=== PATIENT | female | born 1960 | race Caucasian/White ===

== ENCOUNTER 2017-06-13 23:22 | Observation (INO) | payer BC ==
[2017-06-13 23:30] VITALS: BMI 29.2
[2017-06-14] MEDS ORDERED: ASPIRIN 81 MG CHEWABLE TABLETS PO ONE (01:27)
--- NOTE | 2017-06-14 01:28 | PDOC ---
History of Present Illness - General Chief Complaint: Pain Stated Complaint: STOMACH PAIN Time Seen by Provider: 06/14/17 01:16 History Source: Patient - History of Present Illness Initial Comments: 06/14/17 02:22 57 year old female with history of hypercholestremia c/o epigastric pain, nausea vomiting and chest pain x 1 day. patient reports feeling heaviness, diaphoresis, nausea. Patient s/p bladder surgery 04/23/17, dysuria. denies fever, cough, URI, headache Past History - Past Medical History Allergies/Adverse Reactions: Allergies Allergy/AdvReac Type Severity Reaction Status Date / Time No Known Allergies Allergy Verified 06/13/17 23:30 Home Medications: Ambulatory Orders Simvastatin [Zocor -] 20 mg PO DAILY 06/14/17 COPD: No Hypercholesterolemia: Yes - Suicide/Smoking/Psychosocial Hx Smoking History: Current every day smoker Have you smoked in the past 12 months: Yes Number of Cigarettes Smoked Daily: 2 Information on smoking cessation initiated: No Hx Alcohol Use: No Drug/Substance Use Hx: No Substance Use Type: None *Physical Exam - Vital Signs Last Vital Signs Temp Pulse Resp BP Pulse Ox 98.2 F 118 H 18 109/77 100 06/13/17 23:27 06/13/17 23:27 06/13/17 23:27 06/13/17 23:27 06/13/17 23:27 - Physical Exam General Appearance: Yes: Appropriately Dressed Respiratory/Chest: positive: Lungs Clear, Normal Breath Sounds Cardiovascular: positive: Regular Rate Heart Score/ECG Review - History History: Moderately suspicious - Age Age: 45-65 - Risk Factors Risk Factors Heart Score: Yes Hx Hypercholesterolemia, Yes Smoking History, Yes Hx Obesity Based on the list above the patient has:: >/=3 risk factors or Hx atherosclerotic disease - Troponin Troponin: </= normal limit - ECG Intrepretation Rhythm: Regular Rhythm Comment:: 06/14/17 04:28 sinus tachycardia: 104 bpm ED Treatment Course - LABORATORY CBC & Chemistry Diagram: 06/14/17 02:00 06/14/17 02:00 - RADIOLOGY Chest X-Ray Result: No Infiltrates (official read pending) Progress Note - Progress Note Progress Note: A: chest pain; leukocystosis; UTI> P: CBC CMP Cardiac lipase ua lactic acid Aspirin zofran Medical Decision Making - Medical Decision Making 06/14/17 05:09 Patient with slightly improved pain. bedside u/s By Dr. Garrett negative for gall stones. 06/14/17 06:27 Patient signed out to Dr. rush. Lactic acid pending *DC/Admit/Observation/Transfer Diagnosis at time of Disposition: Atypical chest pain, Epigastric pain Leukocytosis Qualifiers: Leukocytosis type: unspecified Qualified Code(s): D72.829 - Elevated white blood cell count, unspecified - Discharge Dispostion Admit: Yes - Referrals Referrals: STAFF,NOT ON [Primary Care Provider] - - Patient Instructions - Post Discharge Activity
[2017-06-14] MEDS ORDERED: ONDANSETRON 4 MG/2 ML VIAL IVPUSH ONE (01:30)
[2017-06-14] MEDS ORDERED: ASPIRIN 81 MG CHEWABLE TABLETS ONE (01:52)
[2017-06-14] MEDS ORDERED: ONDANSETRON 4 MG/2 ML VIAL ONE (01:52)
[2017-06-14 02:44] LABS: ALBUMIN 3.5 g/dl (3.4-5.0); ALK PHOS 115 U/L (45-117); ANION GAP 9 (8-16); BILIRUBIN,TOTAL 0.3 mg/dL (0.2-1.0); BLOOD UREA NITROGEN 18 mg/dL (7-18); CALCIUM 8.7 mg/dL (8.5-10.1); CHLORIDE 105 mmol/L (98-107); CO2 27 mmol/L (21-32); CREATININE 0.8 mg/dL (0.55-1.02); GLUCOSE,RANDOM 134 mg/dL (74-106); LIPASE 94 U/L (73-393); SGPT/ALT 58 U/L (12-78); SODIUM 141 mmol/L (136-145); TOT PROT 6.7 g/dl (6.4-8.2)
[2017-06-14 02:49] LABS: POTASSIUM 4.5 mmol/L (3.5-5.1); SGOT/AST 22 U/L (15-37)
[2017-06-14 03:19] LABS: URINE APPEARANCE CLEAR; URINE BILIRUBIN NEGATIVE (NEGATIVE); URINE BLOOD NEGATIVE (NEGATIVE); URINE COLOR LTYELLOW; URINE GLUCOSE (UA) NEGATIVE (NEGATIVE); URINE KETONE NEGATIVE (NEGATIVE); URINE NITRITE NEGATIVE (NEGATIVE); URINE PROTEIN NEGATIVE (NEGATIVE); URINE UROBILINOGEN NEGATIVE mg/dL (0.2-1.0)
[2017-06-14 03:21] LABS: URINE LEUK ESTERASE 1+ (NEGATIVE)
[2017-06-14 03:25] LABS: BASO % 0.3 % (0-2.0); EOS % 0.6 % (0-4.5); HEMATOCRIT 43.9 % (32.4-45.2); HEMOGLOBIN 14.3 GM/dL (10.7-15.3); LYMPH % 10.7 % (8-40); MCH 28.8 pg (25.7-33.7); MCHC 32.7 g/dl (32.0-36.0); MEAN CELL VOLUME 88.2 fl (80-96); MEAN PLT VOLUME 8.5 fl (7.5-11.1); MONO % 4.6 % (3.8-10.2); NEUT % 83.8 % (42.8-82.8); PLATELET COUNT 311 K/MM3 (134-434); RBC 4.98 M/mm3 (3.60-5.2)
[2017-06-14 04:02] LABS: EPI CELLS RARE /HPF (FEW)
[2017-06-14] MEDS ORDERED: SODIUM CHLORIDE 1,000 ML IV STA (05:16)
--- NOTE | 2017-06-14 05:17 | PN ---
Teaching Attending Note Name of Resident: Hector Ku ATTENDING PHYSICIAN STATEMENT I saw and evaluated the patient. I reviewed the resident's note and discussed the case with the resident. I agree with the resident's findings and plan as documented. SUBJECTIVE: 57 yo F with pmhx of HLD who presents with epigastric pain and nausea. States she also has had dysuria. States she had a "Bladder lifting" surgery and has had increased WBCs since then. Notes diffuse abdominal pain with nausea and vomiting (non-bilous, non-bloody). Denies any chest pain or pressure. States abdominal pain has now subsided. OBJECTIVE: Physical: VS: Vital Signs Period Temp Pulse Resp BP Sys/[place] Pulse Ox Last 24 Hr 98.2 F 118 18 109/77 100 GEN: NAD, resting in bed, AAX3 HEENT: NCAT, PERRL, throat without erythema or exudates CARD: Stach S1, S2 RESP: CTAB ABD: BSx4, NTD to palpation EXT: -C/C/E Home Medications Medication Instructions Recorded NK [No Known Home Medication] 06/14/17 CBCD WBC 17.0 K/mm3 (4.0-10.0) H D 06/14/17 02:00 RBC 4.98 M/mm3 (3.60-5.2) 06/14/17 02:00 Hgb 14.3 GM/dL (10.7-15.3) 06/14/17 02:00 Hct 43.9 % (32.4-45.2) 06/14/17 02:00 MCV 88.2 fl (80-96) 06/14/17 02:00 MCHC 32.7 g/dl (32.0-36.0) 06/14/17 02:00 RDW 14.0 % (11.6-15.6) 06/14/17 02:00 Plt Count 311 K/MM3 (134-434) 06/14/17 02:00 MPV 8.5 fl (7.5-11.1) 06/14/17 02:00 CMP Sodium 141 mmol/L (136-145) 06/14/17 02:00 Potassium 4.5 mmol/L (3.5-5.1) 06/14/17 02:00 Chloride 105 mmol/L (98-107) 06/14/17 02:00 Carbon Dioxide 27 mmol/L (21-32) 06/14/17 02:00 Anion Gap 9 (8-16) 06/14/17 02:00 BUN 18 mg/dL (7-18) 06/14/17 02:00 Creatinine 0.8 mg/dL (0.55-1.02) 06/14/17 02:00 Creat Clearance w eGFR > 60 (>60) 06/14/17 02:00 Random Glucose 134 mg/dL (74-106) H 06/14/17 02:00 Calcium 8.7 mg/dL (8.5-10.1) 06/14/17 02:00 Total Bilirubin 0.3 mg/dL (0.2-1.0) D 06/14/17 02:00 AST 22 U/L (15-37) 06/14/17 02:00 ALT 58 U/L (12-78) 06/14/17 02:00 Alkaline Phosphatase 115 U/L (45-117) 06/14/17 02:00 Total Protein 6.7 g/dl (6.4-8.2) 06/14/17 02:00 Albumin 3.5 g/dl (3.4-5.0) 06/14/17 02:00 CARDIAC ENZYMES Creatine Kinase 111 IU/L (26-192) 06/14/17 02:00 Troponin I < 0.02 ng/ml (0.00-0.05) 06/14/17 02:00 Urine Test Results Urine Color Ltyellow 06/14/17 02:57 Urine Appearance Clear 06/14/17 02:57 Urine pH 6.0 (5.0-8.0) 06/14/17 02:57 Ur Specific [place] 1.019 (1.001-1.035) 06/14/17 02:57 Urine Protein Negative (NEGATIVE) 06/14/17 02:57 Urine Glucose (UA) Negative (NEGATIVE) 06/14/17 02:57 Urine Ketones Negative (NEGATIVE) 06/14/17 02:57 Urine Blood Negative (NEGATIVE) 06/14/17 02:57 Urine Nitrite Negative (NEGATIVE) 06/14/17 02:57 Urine Bilirubin Negative (NEGATIVE) 06/14/17 02:57 Ur Leukocyte Esterase 1+ (NEGATIVE) H 06/14/17 02:57 Ur Epithelial Cells Rare /HPF (FEW) 06/14/17 02:57 ASSESSMENT AND PLAN: 57 yo w. HLD who presents w. epigastric pain, being admitted for sepsis due to UTI 1.) Sepsis DDx: Gastroenteritis vs. UTI vs. Abscess - Most likley due to UTI - IF continuing abdominal pain, consider CT - UCx - Clement Cx - Repeat La - Ceftriaxone 2.) HLD - Not on any home meds 3.) Dvt Ppx - SCDs Place in Med-Sx
--- NOTE | 2017-06-14 06:33 | HP ---
CHIEF COMPLAINT: nausea and vomiting PCP: Dr. Redmond HISTORY OF PRESENT ILLNESS: Pt is a 57 y/o F w/ PMH HLD who presents to hospital with nausea, vomiting, and abdominal pain since 10:30 last night. Pt had several episodes of NBNB vomiting , yellow in color. Pt also admits to having chills, but did not measure her temp at home. Abdominal pain is diffuse but primarily epigastric. Pt also states that when she arrived in ED today, her belly was very distended. Pt also states that she had a "bladder lift" surgery at this facility on Apr 26 2017 for prolapse. She states that during recovery, no one changed her packing bandages for several days and she developed an infection. She denies having gone to the ICU at that time, but does recall receiving antibiotics. She notes that since that event, she has had WBC counts ranging from 32-35 even as an out pt. She is not aware of any ongoing workup for this leukocytosis. She admits to having occasional burning on urination. Pt notes that she has been hospitalized at this facility many many times around 10-15 years ago for very similar symptoms and was treated as having pancreatits. Records of these visits are limited. No other complaints. Denies fever, diarrhea, cp, sob. ER course was notable for: (1) WBC 17, UA +1 LE, 9 WBC, Trop neg, Lipase 94 (2) CXR unremarkable (3) Recent Travel: denies PAST MEDICAL HISTORY: HLD PAST SURGICAL HISTORY: "bladder lift" Social History: Smokin cig/day x 15 years Alcohol: denies Drugs: denies Family History: denies Allergies No Known Allergies Allergy (Verified 06/13/17 23:30) HOME MEDICATIONS: Home Medications Medication Instructions Recorded NK [No Known Home Medication] 06/14/17 REVIEW OF SYSTEMS CONSTITUTIONAL: chills, diaphoresis Absent: fever, , generalized weakness, malaise, loss of appetite, weight change HEENT: throat pain Absent: rhinorrhea, nasal congestion, , throat swelling, difficulty swallowing , mouth swelling, ear pain, eye pain, visual changes CARDIOVASCULAR: Absent: chest pain, syncope, palpitations, irregular heart rate, lightheadedness , peripheral edema RESPIRATORY: Absent: cough, shortness of breath, dyspnea with exertion, orthopnea, wheezing, stridor, hemoptysis GASTROINTESTINAL:abdominal pain, abdominal distension, nausea, vomiting Absent: , diarrhea, constipation, melena, hematochezia GENITOURINARY: dysuria, hematuria Absent: , frequency, urgency, hesitancy, flank pain, genital pain MUSCULOSKELETAL: Absent: myalgia, arthralgia, joint swelling, back pain, neck pain SKIN: Absent: rash, itching, pallor HEMATOLOGIC/IMMUNOLOGIC: Absent: easy bleeding, easy bruising, lymphadenopathy, frequent infections ENDOCRINE: Absent: unexplained weight gain, unexplained weight loss, heat intolerance, cold intolerance NEUROLOGIC: Absent: headache, focal weakness or paresthesias, dizziness, unsteady gait, seizure, mental status changes, bladder or bowel incontinence PSYCHIATRIC: Absent: anxiety, depression, suicidal or homicidal ideation, hallucinations. PHYSICAL EXAMINATION Vital Signs - 24 hr 06/13/17 23:27 Temperature 98.2 F Pulse Rate 118 H Respiratory 18 Rate Blood Pressure 109/77 O2 Sat by Pulse 100 Oximetry (%) GENERAL: Awake, alert, and fully oriented, in no acute distress. HEAD: Normal with no signs of trauma. EYES: Pupils equal, round and reactive to light, extraocular movements intact, sclera anicteric, conjunctiva clear. No lid lag. EARS, NOSE, THROAT: oropharynx clear without exudates. Moist mucous membranes. NECK: Normal range of motion, supple without lymphadenopathy, JVD, or masses. LUNGS: Breath sounds equal, clear to auscultation bilaterally. No wheezes, and no crackles. No accessory muscle use. HEART: Regular rate and rhythm, normal S1 and S2 without murmur, rub or gallop. ABDOMEN: Soft, diffusely tender, not distended, normoactive bowel sounds, no guarding, no rebound, no masses. No hepatomegaly or splenomegaly. MUSCULOSKELETAL: Normal range of motion at all joints. No bony deformities or tenderness. No CVA tenderness. UPPER EXTREMITIES: 2+ pulses, warm, well-perfused. No cyanosis. No clubbing. No peripheral edema. LOWER EXTREMITIES: 2+ pulses, warm, well-perfused. No calf tenderness. No peripheral edema. NEUROLOGICAL: Cranial nerves II-XII intact. Normal speech. Normal gait. PSYCHIATRIC: Cooperative. Good eye contact. Appropriate mood and affect. SKIN: Warm, dry, normal turgor, no rashes or lesions noted, normal capillary refill. Laboratory Results - last 24 hr 01/06/14/17 06/14/17 02:00 02:00 02:00 WBC 17.0 H D RBC 4.98 Hgb 14.3 Hct 43.9 MCV 88.2 MCH 28.8 MCHC 32.7 RDW 14.0 Plt Count 311 MPV 8.5 Neutrophils % 83.8 H D Lymphocytes % 10.7 D Monocytes % 4.6 Eosinophils % 0.6 Basophils % 0.3 Sodium 141 Potassium 4.5 Chloride 105 Carbon Dioxide 27 Anion Gap 9 BUN 18 Creatinine 0.8 Creat Clearance w eGFR > 60 Random Glucose 134 H Calcium 8.7 Total Bilirubin 0.3 D AST 22 ALT 58 Alkaline Phosphatase 115 Creatine Kinase 111 Troponin I < 0.02 Total Protein 6.7 Albumin 3.5 Lipase 94 Urine Color Urine Appearance Urine pH Ur Specific [place] Urine Protein Urine Glucose (UA) Urine Ketones Urine Blood Urine Nitrite Urine Bilirubin Urine Urobilinogen Ur Leukocyte Esterase Urine WBC (Auto) Urine RBC (Auto) Ur Epithelial Cells 06/14/17 02:57 WBC RBC Hgb Hct MCV MCH MCHC RDW Plt Count MPV Neutrophils % Lymphocytes % Monocytes % Eosinophils % Basophils % Sodium Potassium Chloride Carbon Dioxide Anion Gap BUN Creatinine Creat Clearance w eGFR Random Glucose Calcium Total Bilirubin AST ALT Alkaline Phosphatase Creatine Kinase Troponin I Total Protein Albumin Lipase Urine Color Ltyellow Urine Appearance Clear Urine pH 6.0 Ur Specific [place] 1.019 Urine Protein Negative Urine Glucose (UA) Negative Urine Ketones Negative Urine Blood Negative Urine Nitrite Negative Urine Bilirubin Negative Urine Urobilinogen Negative Ur Leukocyte Esterase 1+ H Urine WBC (Auto) 9 Urine RBC (Auto) 1 Ur Epithelial Cells Rare ASSESSMENT/PLAN: Pt is a 57 y/o F with PMH HLD and prior bladder surgery on Apr 26 who presents to ED with nausea and NBNB vomiting since last night. Presentation most consistent with viral gastroenteritis. #Nausea/vomiting -resolved -pt still complaining of abdominal pain -ceftriaxone -low threshold for CT abdomen #Pyuria -pt on ceftriaxone #HLD -simvastatin #FEN -not on fluid -lytes wnl -NPO #Dispo -Obs Hector Ku MD PGY-1 IM Visit type - Emergency Visit Emergency Visit: Yes ED Registration Date: 06/14/17 Care time: The patient presented to the Emergency Department on the above date and was hospitalized for further evaluation of their emergent condition. - New Patient This patient is new to me today: Yes Date on this admission: 06/14/17 - Critical Care Critical Care patient: No
[2017-06-14] MEDS ORDERED: CEFTRIAXONE 1 GM in DEXTROSE 5%-WATER - 50 ML IVPB ONE (06:34)
[2017-06-14] MEDS ORDERED: CEFTRIAXONE 1 GM/50 ML BAG ONE (06:36)
[2017-06-14] MEDS ORDERED: HEPARIN NA (PORCINE) 5,000 UNITS/ML 1ML VIAL SQ SCH ×2 (06:45→07:10)
[2017-06-14] MEDS ORDERED: HEPARIN NA (PORCINE) 5,000 UNITS/ML 1ML VIAL ONE (06:47)
--- NOTE | 2017-06-14 16:57 | PN ---
Physical Exam: SUBJECTIVE: Patient seen and examined. Says she feels better but still has abdominal pain. She denies nausea and vomiting. She had no BM since ED visit but said she was going to go after history obtained. Denies SOB, chest pain, dysuria, dizziness, nausea and vomiting. OBJECTIVE: Vital Signs Period Temp Pulse Resp BP Sys/[place] Pulse Ox Last 24 Hr 97.9 F-98.2 F 76-118 14-18 90-120/57-88 95-100 GENERAL: The patient is awake, alert, and fully oriented, in no acute distress. HEAD: Normal with no signs of trauma. EYES: PERRL, extraocular movements intact ENT: oropharynx clear without exudates, moist mucous membranes. NECK: supple. LUNGS: Breath sounds equal, clear to auscultation bilaterally, no wheezes, no crackles, no accessory muscle use. HEART: Regular rate and rhythm, S1, S2 without murmur, rub or gallop. ABDOMEN: Soft, nd, tender to palpation in all quadrants. Normoactive bowel sounds. EXTREMITIES: 2+ pulses, warm, well-perfused, no edema. PSYCH: Normal mood, normal affect. SKIN: Warm, dry, normal turgor, no rashes or lesions noted Laboratory Results - last 24 hr 06/14/17 06/14/17 06/14/17 02:00 02:00 02:00 WBC 17.0 H D RBC 4.98 Hgb 14.3 Hct 43.9 MCV 88.2 MCH 28.8 MCHC 32.7 RDW 14.0 Plt Count 311 MPV 8.5 Neutrophils % 83.8 H D Lymphocytes % 10.7 D Monocytes % 4.6 Eosinophils % 0.6 Basophils % 0.3 Sodium 141 Potassium 4.5 Chloride 105 Carbon Dioxide 27 Anion Gap 9 BUN 18 Creatinine 0.8 Creat Clearance w eGFR > 60 Random Glucose 134 H Lactic Acid Calcium 8.7 Total Bilirubin 0.3 D AST 22 ALT 58 Alkaline Phosphatase 115 Creatine Kinase 111 Troponin I < 0.02 Total Protein 6.7 Albumin 3.5 Lipase 94 Urine Color Urine Appearance Urine pH Ur Specific [place] Urine Protein Urine Glucose (UA) Urine Ketones Urine Blood Urine Nitrite Urine Bilirubin Urine Urobilinogen Ur Leukocyte Esterase Urine WBC (Auto) Urine RBC (Auto) Ur Epithelial Cells 06/14/17 06/14/17 06/14/17 02:57 05:25 05:55 WBC RBC Hgb Hct MCV MCH MCHC RDW Plt Count MPV Neutrophils % Lymphocytes % Monocytes % Eosinophils % Basophils % Sodium Potassium Chloride Carbon Dioxide Anion Gap BUN Creatinine Creat Clearance w eGFR Random Glucose Lactic Acid 0.9 1.2 Calcium Total Bilirubin AST ALT Alkaline Phosphatase Creatine Kinase Troponin I Total Protein Albumin Lipase Urine Color Ltyellow Urine Appearance Clear Urine pH 6.0 Ur Specific [place] 1.019 Urine Protein Negative Urine Glucose (UA) Negative Urine Ketones Negative Urine Blood Negative Urine Nitrite Negative Urine Bilirubin Negative Urine Urobilinogen Negative Ur Leukocyte Esterase 1+ H Urine WBC (Auto) 9 Urine RBC (Auto) 1 Ur Epithelial Cells Rare Active Medications Generic Name Dose Route Start Last Admin Trade Name Freq PRN Reason Stop Dose Admin Atorvastatin Calcium 10 mg 06/14/17 22:00 Lipitor - PO HS ELVIN Heparin Sodium (Porcine) 5,000 unit 06/14/17 07:10 Heparin - SQ TID ELVIN CEFTRIAXONE 1 G/50 ML PREMIX 50 mls @ 100 mls/hr 06/15/17 10:00 Ceftriaxone 1 Gm-D5w Bag IVPB DAILY [facility] ASSESSMENT/PLAN: Pt is a 57 y/o F with PMH HLD and prior bladder surgery on Apr 26, who presents to ED with nausea and NBNB vomiting since last night and was found to have a UTI. #Sepsis secondary to UTI -cannot rule out Viral gastroenteritis -WBC 17, UA +1 LE, 9 WBC, pulse rate 118 -clinically improved -started on IV antibiotics: Ceftriaxone 1gm (Day 1) -Ucx Pending -flu negative #Leukocytosis -consistent with infection -Patient states previous white cell counts as high as 35, with no records of it. -CT scan 2 months ago unremarkable for acute pathology. #HLD -continue statin therapy: Atorvastatin 10mg #DVT ppx -Hep SQ TID Dispo: Will d/c if patient clinically improves Visit type - Emergency Visit Emergency Visit: Yes ED Registration Date: 06/14/17 Care time: The patient presented to the Emergency Department on the above date and was hospitalized for further evaluation of their emergent condition. - New Patient This patient is new to me today: Yes Date on this admission: 06/14/17 - Critical Care Critical Care patient: No
--- NOTE | 2017-06-14 18:13 | PN ---
Teaching Attending Note Name of Resident: Marcelino Aldrich ATTENDING PHYSICIAN STATEMENT I saw and evaluated the patient. I reviewed the resident's note and discussed the case with the resident. I agree with the resident's findings and plan as documented. SUBJECTIVE:continues to have urinary frequency but nausea and vomiting has resolved. requesting to eat food. states she been told her white count hsa been high as 35 and concern she has leukemia or lymphoma nad needs to see oncologist. denies Cp, SOB, fever, chills, dysuria, or hematuria OBJECTIVE: Last Vital Signs Temp Pulse Resp BP Pulse Ox 97.9 F 81 16 105/63 95 06/14/17 15:29 06/14/17 15:29 06/14/17 15:29 06/14/17 15:29 06/14/17 15:29 General NAD abdomen soft NT/ND no suprapubic distention or tenderness ASSESSMENT AND PLAN: 57yo F wtih PMHdyslipdemia and recent bladder surgery presented with nausea and vomiting and dysuria 1. Sepsis due to UTI however can not r/o gastroenteritis- clinically improved. on ceftriaxone day 1. Ucx pending. Flu negative 2. Leukocytosis- consistent with infection. states white count was as high as 35. however no record of that being here in her records. states shes had these symptoms for [address] scan done 2 weeks ago not suggestive of acute pathology. can f/u with cell preparer as outpatient if desires 3. dyslipidemia- on statin 4. DVT ppx- hep sq 5. d/c planning home in the AM if clinically improves.
[2017-06-14] MEDS: ACETAMINOPHEN 325 MG TABLET (FP) PO PRN (21:10)
[2017-06-14] MEDS ORDERED: ATORVASTATIN CA 10 MG TABLET (FP) PO SCH ×2 (22:00)
[2017-06-14] MEDS: HEPARIN NA (PORCINE) 5,000 UNITS/ML 1ML VIAL SQ SCH (23:04)
[2017-06-15] MEDS: HEPARIN NA (PORCINE) 5,000 UNITS/ML 1ML VIAL SQ SCH ×2 (06:26→15:32)
[2017-06-15] MEDS: ACETAMINOPHEN 325 MG TABLET (FP) PO PRN (07:47)
--- NOTE | 2017-06-15 08:06 | EKG ---
Test Reason : Blood Pressure : / mmHG Vent. Rate : 104 BPM Atrial Rate : 104 BPM P-R Int : 128 ms QRS Dur : 086 ms QT Int : 340 ms P-R-T Axes : 051 -06 034 degrees QTc Int : 447 ms SINUS TACHYCARDIA OTHERWISE NORMAL ECG WHEN COMPARED WITH ECG OF 14-MAR-2016 19:49, NONSPECIFIC T WAVE ABNORMALITY NO LONGER EVIDENT IN ANTERIOR LEADS Confirmed by JULIA WOMACK, THAO ([id number]) on 06/15/2017 8:05:51 AM Referred By: Confirmed By:THAO DUMONT MD
[2017-06-15 08:15] LABS: BASO % 0.7 % (0-2.0); HEMATOCRIT 43.4 % (32.4-45.2); HEMOGLOBIN 14.1 GM/dL (10.7-15.3); LYMPH % 56.1 % (8-40); MCH 28.8 pg (25.7-33.7); MCHC 32.5 g/dl (32.0-36.0); MEAN CELL VOLUME 88.6 fl (80-96); MEAN PLT VOLUME 8.7 fl (7.5-11.1); MONO % 5.2 % (3.8-10.2); PLATELET COUNT 308 K/MM3 (134-434); WHITE BLOOD COUNT 7.2 K/mm3 (4.0-10.0)
[2017-06-15] MEDS ORDERED: CEFTRIAXONE 1 G/50 ML PREMIX 50 ML IVPB SCH (10:00)
[2017-06-15 15:36] VITALS: BP 105/57; PULSE 78; TEMP 98.2
--- NOTE | 2017-06-15 16:06 | PN ---
Teaching Attending Note Name of Resident: Marcelino Aldrich ATTENDING PHYSICIAN STATEMENT I saw and evaluated the patient. I reviewed the resident's note and discussed the case with the resident. I agree with the resident's findings and plan as documented. SUBJECTIVE:reporting blood streak BM today after not having BM for several days. no longer experiencing abdominal pain, N/V/D/ hematuria, melena never had colonoscopy. does not think she is straining OBJECTIVE: Last Vital Signs Temp Pulse Resp BP Pulse Ox 98.2 F 78 20 105/57 98 06/15/17 15:31 06/15/17 15:31 06/15/17 15:31 06/15/17 15:31 06/14/17 21:00 General NAD abdomen soft NT/ND no suprapubic distention or tenderness rectal +external hemrrhoid. light brown stool in rectal vault, no melena or BRBPR ASSESSMENT AND PLAN: 57yo F wtih PMHdyslipdemia and recent bladder surgery presented with nausea and vomiting and dysuria 1. Sepsis due to UTI however can not r/o gastroenteritis- clinically improved. on ceftriaxone day 2. will d/c on keflex to complete 7 day course. Ucx negative. Flu negative 2. Leukocytosis- consistent with infection. now resolved. informed her hematology eval not needed at this time. encouraged to complete abx 3. BRBPR- likely due to straining, was requesting stool softeners earlier in the day. picture of stools shown with minimal bright blood on side of stool, does not appear mixed in. no repeat episodes. hgb stable. patient agreeable to seeing GI as outpatinet for colonoscopy. 3. dyslipidemia- on statin 4. DVT ppx- hep sq 5. d/c home on keflex
--- NOTE | 2017-06-15 16:18 | DS ---
Physical Exam: SUBJECTIVE: Patient seen and examined. Says abdominal pain subsided. She had blood streaked BM after not having a bowel movement in the last few days. She denies nausea and vomiting. Denies SOB, chest pain, dysuria, hematuria, melena , dizziness, nausea and vomiting. OBJECTIVE: Vital Signs Period Temp Pulse Resp BP Sys/[place] Pulse Ox Last 24 Hr 97.9 F-98.6 F 78-84 16-20 102-119/57-75 97-98 PHYSICAL EXAM GENERAL: The patient is awake, alert, and fully oriented, in no acute distress. HEAD: Normal with no signs of trauma. EYES: PERRL, extraocular movements intact ENT: oropharynx clear without exudates, moist mucous membranes. NECK: supple. LUNGS: Breath sounds equal, clear to auscultation bilaterally, no wheezes, no crackles, no accessory muscle use. HEART: Regular rate and rhythm, S1, S2 without murmur, rub or gallop. ABDOMEN: Soft, nd, NT, +BS EXTREMITIES: 2+ pulses, warm, well-perfused, no edema. PSYCH: Normal mood, normal affect. SKIN: Warm, dry, normal turgor, no rashes or lesions noted Rectal: external hemorrhoids, light brown stool in rectal vault, no melena or bright red blood per rectum. LABS Laboratory Results - last 24 hr 06/15/17 06:30 WBC 7.2 D RBC 4.90 Hgb 14.1 Hct 43.4 MCV 88.6 MCH 28.8 MCHC 32.5 RDW 14.0 Plt Count 308 MPV 8.7 Neutrophils % 36.0 L D Lymphocytes % 56.1 H D Monocytes % 5.2 Eosinophils % 2.0 D Basophils % 0.7 HOSPITAL COURSE: Date of Admission:06/14/17 Pt is a 57 y/o F with PMH of HLD, who presented with nausea and NBNB vomiting, was found to be septic secondary to UTI. Patient was started on Ceftriaxone for 2 days and patient clinically improved. She will be discharged on 5 more days of oral antibiotics (Keflex). Prior to discharge patient experienced BRBPR likely due to straining with no repeat episodes. HGB is stable and patient agreed to seeing GI after discharge for colonoscopy. She will also follow up with her PCP in 1 week. Date of Discharge: 06/15/17 Minutes to complete discharge: 35 Discharge Summary Reason For Visit: ATYPICAL CHEST PAIN LEUKOCYTOSIS Current Active Problems Epigastric pain (Acute) Leukocytosis (Acute) Sepsis (Acute) UTI (urinary tract infection) (Acute) Condition: Improved - Instructions Diet, Activity, Other Instructions: You were being treated for a urinary tract infection. Please take your medications as directed. You will be discharged on Antibiotics. Starting tomorrow take keflex 1 tablet twice a day for 5 days. Take until completed even if your symptoms resolved. Follow up with your doctor in 1 week. Follow up with [facility] for colonoscopy. Information on one has been provided. You should have a colonoscopy. If you feel your symptoms are worsening please go to your nearest emergency department. Referrals: Jeff Kowalski MD [Staff Physician] - STAFF,NOT ON [Primary Care Provider] - Disposition: HOME - Home Medications Comprehensive Discharge Medication List: Ambulatory Orders Simvastatin [Zocor -] 20 mg PO DAILY 06/14/17 Cephalexin Monohydrate [Keflex -] 500 mg PO BID #10 capsule 06/15/17 This patient is new to me today: No Emergency Visit: Yes ED Registration Date: 06/14/17 Care time: The patient presented to the Emergency Department on the above date and was hospitalized for further evaluation of their emergent condition. Critical Care patient: No - Discharge Referral Referred to [facility] No
== END 2017-06-15 18:56 | disposition home or self-care (01) ==
LOC: JER 23:22 → INTOOBSV 06-14 05:41 → JERBED 06-14 05:41 → J8W 06-14 20:00
PROVIDERS: ADMIT Internal Medicine; ATTEND Internal Medicine
PROC: 3E03329 Introduction of Other Anti-infective into Peripheral Vein, Percutaneous Approach (ICD-10-PCS; principal; 2017-06-14)
PROC: 3E033GC Introduction of Other Therapeutic Substance into Peripheral Vein, Percutaneous Approach (ICD-10-PCS; 2017-06-14)
PROC: 3E0337Z Introduction of Electrolytic and Water Balance Substance into Peripheral Vein, Percutaneous Approach (ICD-10-PCS; 2017-06-14)
DX: A41.9 Sepsis, unspecified organism (principal); N39.0 Urinary tract infection, site not specified; R10.13 Epigastric pain; D72.829 Elevated white blood cell count, unspecified; F17.210 Nicotine dependence, cigarettes, uncomplicated; E78.5 Hyperlipidemia, unspecified
CPT/HCPCS: 36415; 71046-TC; 80053; 81003; 81015; 82550; 83605; 83690; 84484; 85025; 87086; 87804; 93005; 93010; 99285-25; G0378; J1644

== ENCOUNTER 2018-04-18 06:19 | Emergency (ER) | payer BC ==
--- NOTE | 2018-04-18 07:12 | PDOC ---
History of Present Illness - General Chief Complaint: Blood Pressure Problem Stated Complaint: BLOOD PRESSURE PROBLEM Time Seen by Provider: 04/18/18 07:09 - History of Present Illness Initial Comments: 04/18/18 07:09 Ms. Jose is a 58 yo female w/ pmh of HLD who presents for evaluation of 1 day of chest pain. Patient reports pain started yesterday and coincided w/ checking BP at home and noted elevated values to 174 systolic. Patient normal BP upon arrival. Patient believes BP cuff may be broken. Patient reports pain still intermittently present however although describes it as constant and non- pleuritic. Patient has no other complaints at this time. Patient is also a pack/ day smoker. The patient denies shortness of breath, headache and dizziness. Denies fever, chills, nausea, vomit, diarrhea and constipation. Denies dysuria, frequency, urgency and hematuria. Past History - Past Medical History Allergies/Adverse Reactions: Allergies Allergy/AdvReac Type Severity Reaction Status Date / Time No Known Allergies Allergy Verified 06/13/17 23:30 Home Medications: Ambulatory Orders Simvastatin [Zocor -] 20 mg PO DAILY 06/14/17 COPD: No Hypercholesterolemia: Yes - Surgical History Cholecystectomy: Yes - Suicide/Smoking/Psychosocial Hx Smoking History: Current every day smoker Have you smoked in the past 12 months: Yes Number of Cigarettes Smoked Daily: 12 Information on smoking cessation initiated: No Hx Alcohol Use: No Drug/Substance Use Hx: No Substance Use Type: None Review of Systems - Review of Systems Comments:: 04/18/18 07:12 GENERAL/CONSTITUTIONAL: No fever or chills. No weakness. HEAD, EYES, EARS, NOSE AND THROAT: No change in vision. No ear pain or discharge. No sore throat. CARDIOVASCULAR: +Chest pain as described. No shortness of breath RESPIRATORY: No cough, wheezing, or hemoptysis. GASTROINTESTINAL: No nausea, vomiting, diarrhea or constipation. GENITOURINARY: No dysuria, frequency, or change in urination. MUSCULOSKELETAL: No joint or muscle swelling or pain. No neck or back pain. SKIN: No rash NEUROLOGIC: No headache, vertigo, loss of consciousness, or change in strength/ sensation. ENDOCRINE: No increased thirst. No abnormal weight change HEMATOLOGIC/LYMPHATIC: No anemia, easy bleeding, or history of blood clots. ALLERGIC/IMMUNOLOGIC: No hives or skin allergy. *Physical Exam - Vital Signs Last Vital Signs Temp Pulse Resp BP Pulse Ox 98.5 F 90 19 131/85 94 L 04/18/18 07:02 04/18/18 07:02 04/18/18 07:02 04/18/18 07:02 04/18/18 07:02 - Physical Exam Comments: 04/18/18 07:12 GENERAL: Awake, alert, and fully oriented, in no acute distress HEAD: No signs of trauma, normocephalic, atraumatic EYES: PERRLA, EOMI, sclera anicteric, conjunctiva clear ENT: Auricles normal inspection, hearing grossly normal, nares patent, oropharynx clear without exudates. Moist mucosa NECK: Normal ROM, supple, no lymphadenopathy, JVD, or masses LUNGS: No distress, speaks full sentences, clear to auscultation bilaterally HEART: Regular rate and rhythm, normal S1 and S2, no murmurs, rubs or gallops, peripheral pulses normal and equal bilaterally. ABDOMEN: Soft, nontender, normoactive bowel sounds. No guarding, no rebound. No masses EXTREMITIES: Normal inspection, Normal range of motion, no edema. No clubbing or cyanosis. NEUROLOGICAL: Cranial nerves II through XII grossly intact. Normal speech, normal gait, no focal sensorimotor deficits SKIN: Warm, Dry, normal turgor, no rashes or lesions noted. Heart Score/ECG Review - History History: Slightly suspicious - Electrocardiogram EKG: Normal - Age Age: 45-65 - Risk Factors Risk Factors Heart Score: Yes Hx Hypercholesterolemia, Yes Smoking History, Yes Hx Obesity Based on the list above the patient has:: >/=3 risk factors or Hx atherosclerotic disease - Troponin Troponin: </= normal limit - Score Heart Score - Total: 3 ED Treatment Course - LABORATORY CBC & Chemistry Diagram: 04/18/18 07:47 04/18/18 07:47 Medical Decision Making - Medical Decision Making 04/18/18 09:04 Ms. Jose is a 58 yo female w/ pmh as described who presents for evaluation of symptoms concerning for cardiac process vs. MSK pain vs. anxiety. Workup started w/ cardiac labs, EKG, CXR. Patient labs grossly wnl as below. CXR negative. EKG non-concerning. No concern for acute process at this time. Patient reporting improvement of symptoms and would like to go home. Suspect anxiety as etiology of symptoms. Discharging to home. Patient will f/u w/ PCP later this week. Laboratory Results - last 24 hr 04/18/18 04/18/18 07:47 07:47 WBC 10.1 H RBC 4.69 Hgb 14.4 Hct 41.5 MCV 88.5 MCH 30.7 MCHC 34.7 RDW 14.4 Plt Count 291 MPV 8.3 Absolute Neuts (auto) 6.7 Neutrophils % 66.1 D Lymphocytes % 26.4 D Monocytes % 5.1 Eosinophils % 1.7 Basophils % 0.7 Nucleated RBC % 0 Sodium 142 Potassium 4.5 Chloride 110 H Carbon Dioxide 23 Anion Gap 9 BUN 11 Creatinine 0.7 Creat Clearance w eGFR > 60 Random Glucose 90 Calcium 8.5 Total Bilirubin 0.3 AST 18 ALT 34 Alkaline Phosphatase 110 Creatine Kinase 96 Troponin I < 0.02 Total Protein 6.6 Albumin 3.5 *DC/Admit/Observation/Transfer Diagnosis at time of Disposition: Chest pain Qualifiers: Chest pain type: unspecified Qualified Code(s): R07.9 - Chest pain, unspecified - Discharge Dispostion Disposition: HOME - Referrals Referrals: Shady Weaver MD [Primary Care Provider] - Alfred Currie MD [Staff Physician] - [facility] [Provider Group] - Patient Instructions Printed Discharge Instructions: DI for Atypical Chest Pain, How to Quit Smoking Additional Instructions: You were evaluated today in the ER for your chest pain. EKG, labs, and chest Xray were all negative. No concerning findings were found at this time. We have given you cardiology follow-up as well as PCP establishment as discussed. Please follow-up as described and return to ER if any increase in pain, fever, chills, or other concerning symptoms. - Post Discharge Activity
[2018-04-18 08:14] LABS: BASO % 0.7 % (0-2.0); EOS % 1.7 % (0-4.5); HEMATOCRIT 41.5 % (32.4-45.2); HEMOGLOBIN 14.4 GM/dL (10.7-15.3); LYMPH % 26.4 % (8-40); MCH 30.7 pg (25.7-33.7); MCHC 34.7 g/dl (32.0-36.0); MEAN CELL VOLUME 88.5 fl (80-96); MEAN PLT VOLUME 8.3 fl (7.5-11.1); MONO % 5.1 % (3.8-10.2); NEUT % 66.1 % (42.8-82.8); PLATELET COUNT 291 K/MM3 (134-434); RBC 4.69 M/mm3 (3.60-5.2); RDW 14.4 % (11.6-15.6); WHITE BLOOD COUNT 10.1 K/mm3 (4.0-10.0)
[2018-04-18 08:51] LABS: ALBUMIN 3.5 g/dl (3.4-5.0); ALK PHOS 110 U/L (45-117); ANION GAP 9 MMOL/L (8-16); BILIRUBIN,TOTAL 0.3 mg/dL (0.2-1); BLOOD UREA NITROGEN 11 mg/dL (7-18); CALCIUM 8.5 mg/dL (8.5-10.1); CHLORIDE 110 mmol/L (98-107); CO2 23 mmol/L (21-32); CREATININE 0.7 mg/dL (0.55-1.3); GLUCOSE,RANDOM 90 mg/dL (74-106); POTASSIUM 4.5 mmol/L (3.5-5.1); SGOT/AST 18 U/L (15-37); SGPT/ALT 34 U/L (13-61); SODIUM 142 mmol/L (136-145); TOT PROT 6.6 g/dl (6.4-8.2)
--- NOTE | 2018-04-18 09:11 | PDOC ---
Attending Attestation - Resident Resident Name: Brennan Salazar - ED Attending Attestation I have performed the following: I have examined & evaluated the patient, The case was reviewed & discussed with the resident, I agree w/resident's findings & plan - HPI HPI: 04/18/18 09:07 58y/o F h/o high cholesterol, smoking followed at [facility] clinic annually p/w chest pain since yesterday. Pt in usonh, unlimited exercise tolerance at baseline except for L hip pain, p/w sharp and localized L anterior chest pain since yesterday, associated with palpitations but no LAWS/SOB/orthopnea/n/ diaphoresis/light-headedness. no leg swelling or cramping, no PE risk factors. no f/c/cough. awoke this morning with persistent chest pain so presents for evaluation. had a stress test 2y ago that was normal, never needed a cath. - Physicial Exam PE: 04/18/18 09:10 VS normal, o2 99% on room air on my exam well appearing, alert, nad perrl, eomi neck supple, no audible carotid bruit s1s2 rrr, no ectopy or murmur ctab, no wheeze or crackles no edema/calf ttp - Medical Decision Making 04/18/18 09:11 58y/o F with high chol/smoking p/w overall atypical chest pain since yesterday with intermittent palpitations. non-exertional, persistent but with some risk factors, overall heart score 3. initial workup with labs/trop/ekg/cxr normal will d/c with prompt f/u with cards, stressed importance of f/u stress test. will offer/[facility]erve [facility] appt. understands return criteria Heart Score/ECG Review - History History: Slightly suspicious - Electrocardiogram EKG: Normal - Age Age: 45-65 - Risk Factors Risk Factors Heart Score: Yes Hx Hypercholesterolemia, Yes Smoking History Based on the list above the patient has:: >/=3 risk factors or Hx atherosclerotic disease - Troponin Troponin: </= normal limit - Score Heart Score - Total: 3 #1 ECG reviewed & interpreted by me at: 07:45 General ECG Interpretation: Sinus Rhythm, Normal Rate (81), Normal Intervals ( qtc 439), No acute ischemic changes
[2018-04-18 11:00] VITALS: BP 126/68; PULSE 79; TEMP 98
--- NOTE | 2018-04-18 12:32 | EKG ---
Test Reason : Blood Pressure : / mmHG Vent. Rate : 081 BPM Atrial Rate : 081 BPM P-R Int : 132 ms QRS Dur : 094 ms QT Int : 378 ms P-R-T Axes : 031 008 035 degrees QTc Int : 439 ms NORMAL SINUS RHYTHM NORMAL ECG Confirmed by MD LEVY GREGORY ([id number]) on 04/18/2018 12:31:28 PM Referred By: Confirmed By:FABIANA LEVY MD
== END 2018-04-18 10:57 | disposition home or self-care (01) ==
LOC: JER 06:19
DX: R07.9 Chest pain, unspecified (principal); E78.00 Pure hypercholesterolemia, unspecified; F17.210 Nicotine dependence, cigarettes, uncomplicated
CPT/HCPCS: 36415; 71046-TC-FY; 80053; 82550; 84484; 85025; 93005; 93010; 99282-25

== ENCOUNTER 2020-05-20 11:44 | Emergency (ER) | payer BC ==
[2020-05-20 11:51] VITALS: BMI 35.2
[2020-05-20 12:41] LABS: BASO % 1.8 % (0-2.0); EOS % 1.5 % (0-4.5); HEMATOCRIT 43.8 % (32.4-45.2); HEMOGLOBIN 14.4 GM/dL (10.7-15.3); LYMPH % 40.7 % (8-40); MCH 29.8 pg (25.7-33.7); MCHC 32.9 g/dl (32.0-36.0); MEAN CELL VOLUME 90.7 fl (80-96); MEAN PLT VOLUME 8.7 fl (7.5-11.1); MONO % 5.4 % (3.8-10.2); NEUT % 50.6 % (42.8-82.8); PLATELET COUNT 312 K/MM3 (134-434); RBC 4.83 M/mm3 (3.60-5.2); RDW 13.9 % (11.6-15.6); WHITE BLOOD COUNT 9.5 K/mm3 (4.0-10.0)
[2020-05-20 12:49] LABS: INR 0.98 (0.83-1.09); PROTHROMBIN TIME (PATIENT) 12.1 SEC (9.7-13.0)
[2020-05-20 12:52] LABS: ACTIVATED PTT 31.2 SECONDS (25.2-36.5)
[2020-05-20 12:55] LABS: CHLORIDE 105 mmol/L (98-107); POTASSIUM 4.2 mmol/L (3.5-5.1); SODIUM 137 mmol/L (136-145)
[2020-05-20 12:57] LABS: ANION GAP 7 MMOL/L (8-16); BLOOD UREA NITROGEN 11.5 mg/dL (7-18); CALCIUM 9.2 mg/dL (8.5-10.1); CO2 25 mmol/L (21-32); GLUCOSE,RANDOM 128 mg/dL (74-106)
[2020-05-20 12:58] LABS: ALBUMIN 3.9 g/dl (3.4-5.0)
[2020-05-20 13:00] LABS: CHOLESTEROL 208 mg/dL (50-200); CREATININE 0.8 mg/dL (0.55-1.3); SGOT/AST 39 U/L (15-37); SGPT/ALT 89 U/L (13-61)
[2020-05-20 13:01] LABS: TRIGLYCERIDES 216 mg/dL (0-150)
[2020-05-20 13:02] LABS: BILIRUBIN,TOTAL 0.2 mg/dL (0.2-1); LDL CHOLESTEROL (ONLY SJRH) 107 mg/dL (5-100); TOT PROT 7.2 g/dl (6.4-8.2)
[2020-05-20 13:03] LABS: ALK PHOS 127 U/L (45-117); HDL CHOLESTEROL 71 mg/dL (40-60)
[2020-05-20 14:28] LABS: PH,URINE 5.5 (5.0-8.0); URINE APPEARANCE CLOUDY; URINE BILIRUBIN NEGATIVE (NEGATIVE); URINE COLOR YELLOW; URINE GLUCOSE (UA) NEGATIVE (NEGATIVE); URINE KETONE NEGATIVE (NEGATIVE); URINE LEUK ESTERASE NEGATIVE (NEGATIVE); URINE NITRITE NEGATIVE (NEGATIVE); URINE PROTEIN NEGATIVE (NEGATIVE); URINE UROBILINOGEN 0.2 mg/dL (0.2-1.0)
[2020-05-20 15:43] VITALS: BP 137/85; PULSE 75; TEMP 98
[2020-05-25 03:05] LABS: IgG Ab 23 kDa Band Absent (.); IgG Ab 28 kDa Band Absent (.)
== END 2020-05-20 15:59 | disposition home or self-care (01) ==
LOC: JER 11:44
DX: G51.0 Bell's palsy (principal)
CPT/HCPCS: 36415; 70450-TC; 70551-TC; 80053; 80061; 81003; 82550; 83721; 84484; 85025; 85610; 85730; 86618; 86850; 86900; 86901; 93005; 93010; 99285-25; C9803; U0003

== ENCOUNTER 2020-10-09 01:19 | Emergency (ER) | payer BC ==
[2020-10-09 01:34] VITALS: BP 134/92; PULSE 87; TEMP 98.6; BMI 39.0
[2020-10-09] MEDS ORDERED: KETOROLAC TROMETHAMINE 30 MG/1 ML VIAL IM ONE (01:49)
[2020-10-09] MEDS ORDERED: ACETAMINOPHEN 325 MG TABLET (FP) PO ONE (01:50)
[2020-10-09] MEDS ORDERED: ACETAMINOPHEN 325 MG TABLET (FP) ONE (02:02)
[2020-10-09] MEDS ORDERED: KETOROLAC TROMETHAMINE 30 MG/1 ML VIAL ONE (02:03)
[2020-10-09 02:20] LABS: PH,URINE 6.5 (5.0-8.0); URINE APPEARANCE CLEAR; URINE BILIRUBIN NEGATIVE (NEGATIVE); URINE COLOR YELLOW; URINE GLUCOSE (UA) NEGATIVE (NEGATIVE); URINE KETONE NEGATIVE (NEGATIVE); URINE LEUK ESTERASE 2+ (NEGATIVE); URINE NITRITE NEGATIVE (NEGATIVE); URINE PROTEIN NEGATIVE (NEGATIVE); URINE UROBILINOGEN 0.2 mg/dL (0.2-1.0)
[2020-10-09] MEDS ORDERED: CEPHALEXIN MONOHYDRATE 500 MG CAPSULE (UD) PO STA (03:24)
[2020-10-09] MEDS ORDERED: CEPHALEXIN MONOHYDRATE 500 MG CAPSULE (UD) ONE (04:00)
[2020-10-09 08:36] LABS: HYALINE CASTS 0.25 /uL (0-3.1); URINE BACTERIA 278.1 /uL (0-1359); URINE WBC 6.9 /uL (0-25.8)
== END 2020-10-09 04:06 | disposition home or self-care (01) ==
LOC: JER 01:19
PROC: 3E0233Z Introduction of Anti-inflammatory into Muscle, Percutaneous Approach (ICD-10-PCS; principal; 2020-10-09)
DX: N39.0 Urinary tract infection, site not specified (principal); N81.10 Cystocele, unspecified
CPT/HCPCS: 81003; 87086; 99284-25

== ENCOUNTER 2021-10-16 02:43 | Inpatient (IN) | payer BC ==
[2021-10-16] MEDS ORDERED: ACETAMINOPHEN 500 MG TABLET (FP) PO ONE (03:13)
[2021-10-16] MEDS ORDERED: ACETAMINOPHEN 325 MG TABLET (FP) ONE (03:17)
[2021-10-16] MEDS ORDERED: ONDANSETRON 4 MG/2 ML VIAL IVPUSH ONE (03:58)
[2021-10-16] MEDS ORDERED: morphine CARPU-JECT 4 MG/1 ML DISP.SYRIN IVPUSH ONE ×3 (03:58→11:47)
[2021-10-16] MEDS ORDERED: morphine SULFATE 4 MG/ML VIAL ONE ×2 (04:14→05:43)
[2021-10-16] MEDS ORDERED: ONDANSETRON 4 MG/2 ML VIAL ONE (04:14)
[2021-10-16 05:05] LABS: BASO % 0.2 % (0-2.0); EOS % 0.6 % (0-4.5); HEMATOCRIT 44.6 % (32.4-45.2); HEMOGLOBIN 14.5 GM/dL (10.7-15.3); LYMPH % 14.5 % (8-40); MCH 29.2 pg (25.7-33.7); MCHC 32.6 g/dl (32.0-36.0); MEAN CELL VOLUME 89.6 fl (80-96); MEAN PLT VOLUME 7.8 fl (7.5-11.1); MONO % 3.9 % (3.8-10.2); NEUT % 80.8 % (42.8-82.8); PLATELET COUNT 321 10^3/uL (134-434); RBC 4.98 M/mm3 (3.60-5.2); RDW 14.1 % (11.6-15.6); WHITE BLOOD COUNT 17.9 K/mm3 (4.0-10.0)
[2021-10-16 05:25] LABS: INR 0.91 (0.83-1.09); PROTHROMBIN TIME (PATIENT) 10.4 SEC (9.7-13.0)
[2021-10-16 05:27] LABS: ALBUMIN 3.9 g/dl (3.4-5.0); BLOOD UREA NITROGEN 12.8 mg/dL (7-18); CALCIUM 9.4 mg/dL (8.5-10.1)
[2021-10-16 05:28] LABS: ACTIVATED PTT 28.2 SECONDS (25.2-36.5)
[2021-10-16 05:30] LABS: CREATININE 0.7 mg/dL (0.55-1.3)
[2021-10-16 05:32] LABS: BILIRUBIN,TOTAL 0.2 mg/dL (0.2-1); TOT PROT 7.3 g/dl (6.4-8.2)
[2021-10-16 08:28] LABS: EPI CELLS >36 /uL (0-25.1); HYALINE CASTS 5 /uL (0-3.1); PH,URINE 5.5 (5.0-8.0); URINE APPEARANCE CLEAR; URINE BACTERIA 1098 /uL (0-1359); URINE BILIRUBIN NEGATIVE (NEGATIVE); URINE COLOR YELLOW; URINE GLUCOSE (UA) NEGATIVE (NEGATIVE); URINE KETONE NEGATIVE (NEGATIVE); URINE LEUK ESTERASE NEGATIVE (NEGATIVE); URINE NITRITE NEGATIVE (NEGATIVE); URINE PROTEIN 1+ (NEGATIVE); URINE UROBILINOGEN 0.2 mg/dL (0.2-1.0); URINE WBC 13 /uL (0-25.8)
[2021-10-16 09:29] LABS: URINE RBC 25.5 /uL (0-23.9)
[2021-10-16] MEDS ORDERED: ACETAMINOPHEN 1000 MG/100 ML BAG IVPB ONE (11:46)
[2021-10-16 14:04] VITALS: BMI 29.0
[2021-10-16] MEDS: ACETAMINOPHEN 1000 MG/100 ML BAG IVPB PRN (22:34)
[2021-10-17] MEDS: CHOLECALCIFEROL (VIT D3) 1,000 UNIT (25 MCG) TABLET PO SCH (09:12)
[2021-10-17] MEDS: ACETAMINOPHEN 1000 MG/100 ML BAG IVPB PRN (09:12)
[2021-10-17 10:42] LABS: BASO % 0.6 % (0-2.0); EOS % 1.3 % (0-4.5); HEMATOCRIT 40.4 % (32.4-45.2); HEMOGLOBIN 13.5 GM/dL (10.7-15.3); LYMPH % 38.3 % (8-40); MCH 30.2 pg (25.7-33.7); MCHC 33.4 g/dl (32.0-36.0); MEAN CELL VOLUME 90.6 fl (80-96); MEAN PLT VOLUME 7.9 fl (7.5-11.1); MONO % 4.1 % (3.8-10.2); NEUT % 55.7 % (42.8-82.8); PLATELET COUNT 283 10^3/uL (134-434); RBC 4.46 M/mm3 (3.60-5.2); RDW 14.2 % (11.6-15.6); WHITE BLOOD COUNT 11.2 K/mm3 (4.0-10.0)
[2021-10-17 11:06] LABS: CALCIUM 8.7 mg/dL (8.5-10.1)
[2021-10-17 11:07] LABS: ALBUMIN 3.4 g/dl (3.4-5.0); MAGNESIUM 2.1 mg/dL (1.8-2.4)
[2021-10-17 11:10] LABS: BLOOD UREA NITROGEN 15.8 mg/dL (7-18); CREATININE 0.7 mg/dL (0.55-1.3); PHOSPHOROUS 2.4 mg/dL (2.5-4.9)
[2021-10-17 11:11] LABS: BILIRUBIN,TOTAL 0.8 mg/dL (0.2-1); TOT PROT 6.6 g/dl (6.4-8.2)
[2021-10-17] MEDS: NAPH,MB-DB/K PH,MBDB POWDER PACKET PO SCH ×2 (14:23→21:36)
[2021-10-17 23:39] VITALS: TEMP 98.7
[2021-10-18] MEDS: NAPH,MB-DB/K PH,MBDB POWDER PACKET PO SCH (05:49)
[2021-10-18] MEDS: CHOLECALCIFEROL (VIT D3) 1,000 UNIT (25 MCG) TABLET PO SCH (09:34)
[2021-10-18 09:47] LABS: HEMATOCRIT 42.7 % (32.4-45.2); HEMOGLOBIN 14.2 GM/dL (10.7-15.3); MCH 30.1 pg (25.7-33.7); MCHC 33.2 g/dl (32.0-36.0); MEAN CELL VOLUME 90.7 fl (80-96); MEAN PLT VOLUME 8.4 fl (7.5-11.1); PLATELET COUNT 294 10^3/uL (134-434); RBC 4.71 M/mm3 (3.60-5.2); RDW 14.3 % (11.6-15.6); WHITE BLOOD COUNT 10.8 K/mm3 (4.0-10.0)
[2021-10-18 10:12] LABS: CALCIUM 9.2 mg/dL (8.5-10.1)
[2021-10-18 10:13] LABS: BLOOD UREA NITROGEN 13.4 mg/dL (7-18)
[2021-10-18 10:16] LABS: CREATININE 0.7 mg/dL (0.55-1.3); PHOSPHOROUS 4.4 mg/dL (2.5-4.9)
[2021-10-18 11:47] LABS: EPI CELLS >36 /uL (0-25.1); HYALINE CASTS 8 /uL (0-3.1); PH,URINE 5.5 (5.0-8.0); URINE APPEARANCE CLOUDY; URINE BACTERIA 2522 /uL (0-1359); URINE BILIRUBIN NEGATIVE (NEGATIVE); URINE COLOR YELLOW; URINE GLUCOSE (UA) NEGATIVE (NEGATIVE); URINE KETONE NEGATIVE (NEGATIVE); URINE LEUK ESTERASE TRACE (NEGATIVE); URINE NITRITE NEGATIVE (NEGATIVE); URINE PROTEIN NEGATIVE (NEGATIVE); URINE RBC 8 /uL (0-23.9); URINE UROBILINOGEN 0.2 mg/dL (0.2-1.0); URINE WBC 265 /uL (0-25.8)
[2021-10-18] MEDS ORDERED: CEPHALEXIN MONOHYDRATE 500 MG CAPSULE (UD) PO ONE (12:45)
[2021-10-18 14:59] VITALS: BP 124/58; PULSE 83
== END 2021-10-18 15:13 | disposition home health service (06) | DRG 563 ==
LOC: JER 02:43 → JERBED 05:31 → J6S 12:40
PROVIDERS: ADMIT Hospitalist; ATTEND Internal Medicine
DX: S42.324A Nondisplaced transverse fracture of shaft of humerus, right arm, initial encounter for closed fracture (principal); E78.5 Hyperlipidemia, unspecified; E11.9 Type 2 diabetes mellitus without complications; W10.9XXA Fall (on) (from) unspecified stairs and steps, initial encounter; Y93.89 Activity, other specified; Y92.008 Other place in unspecified non-institutional (private) residence as the place of occurrence of the external cause; Y99.8 Other external cause status
CPT/HCPCS: 36415; 70450-TC; 71045-TC-FY; 73030-TC-RT-FY; 73060-TC-RT-FY; 73070-TC-RT-FY; 80048; 80053; 81003; 83036; 83735; 84100; 85025; 85027; 85610; 85730; 86850; 86900; 86901; 87086; 93005; 93010; 97116-GP; 97162-GP; 99285-25; C9803-CS; G0378; U0003; U0005

== ENCOUNTER 2021-10-20 12:56 | Emergency (ER) | payer BC ==
[2021-10-20 13:13] VITALS: BP 128/78; PULSE 91; TEMP 98.6; BMI 28.3
[2021-10-20] MEDS ORDERED: CEPHALEXIN MONOHYDRATE 500 MG CAPSULE (UD) PO ONE (14:57)
[2021-10-20] MEDS ORDERED: CEPHALEXIN MONOHYDRATE 500 MG CAPSULE (UD) ONE (15:09)
== END 2021-10-20 15:14 | disposition home or self-care (01) ==
LOC: JER 12:56
DX: S42.301A Unspecified fracture of shaft of humerus, right arm, initial encounter for closed fracture (principal); W10.9XXA Fall (on) (from) unspecified stairs and steps, initial encounter
CPT/HCPCS: 99283-25

== ENCOUNTER 2021-10-29 08:54 | Day surgery (SDC) | payer BC ==
[2021-10-29 09:30] VITALS: BMI 28.3
[2021-10-29] MEDS ORDERED: ONDANSETRON 4 MG/2 ML VIAL IVPUSH PRN (12:01)
[2021-10-29] MEDS ORDERED: PROPOFOL 20 ML ONE (12:22)
[2021-10-29] MEDS ORDERED: ROCURONIUM BROMIDE 50 MG/5 ML SYRINGE ONE ×2 (12:22→13:37)
[2021-10-29] MEDS ORDERED: fentaNYL CITRATE 250 MCG/5 ML VIAL ONE (12:22)
[2021-10-29] MEDS ORDERED: MIDAZOLAM HCL 2 MG/2 ML SINGLE DOSE VIAL ONE (12:22)
[2021-10-29] MEDS ORDERED: BUPIVACAINE HCL 50 ML ONE ×2 (12:45→13:47)
[2021-10-29] MEDS ORDERED: ACETAMINOPHEN 325 MG TABLET (FP) PO PRN (15:24)
[2021-10-29] MEDS ORDERED: ALBUTEROL SO4 HFA INHALER IH PRN (15:26)
[2021-10-29] MEDS ORDERED: FENTANYL CITRATE/PF 50 MCG/ML VIAL ONE (15:30)
[2021-10-29] MEDS ORDERED: ONDANSETRON 4 MG/2 ML VIAL ONE (15:53)
[2021-10-29] MEDS: LACTATED RINGERS SOLUTION 1,000 ML IV SCH (17:09)
[2021-10-29] MEDS ORDERED: DEXTROSE 5%-WATER - 50 ML IVPB ONE (18:08)
[2021-10-29] MEDS ORDERED: ceFAZolin SODIUM 1 GM VIAL ONE (18:08)
[2021-10-29] MEDS: CEFAZOLIN 1 GM in DEXTROSE 5%-WATER - 1 GM/50 ML IVPB IVPB SCH (18:19)
[2021-10-29] MEDS: DOCUSATE SODIUM 100 MG CAPSULE (FP) PO SCH (21:40)
[2021-10-29] MEDS: oxyCODONE HCL 5 MG TABLET PO PRN (21:42)
[2021-10-29] MEDS ORDERED: ATORVASTATIN CA 20 MG TABLET (FP) PO SCH (22:00)
[2021-10-30] MEDS ORDERED: DEXTROSE 5%-WATER - 50 ML IVPB ONE ×2 (01:29→09:36)
[2021-10-30] MEDS ORDERED: ceFAZolin SODIUM 1 GM VIAL ONE ×2 (01:29→09:36)
[2021-10-30] MEDS: CEFAZOLIN 1 GM in DEXTROSE 5%-WATER - 1 GM/50 ML IVPB IVPB SCH ×2 (01:45→10:16)
[2021-10-30 03:21] VITALS: TEMP 98.6
[2021-10-30] MEDS: DOCUSATE SODIUM 100 MG CAPSULE (FP) PO SCH (06:10)
[2021-10-30] MEDS ORDERED: BENZOCAINE/MENTH/CETYLPYRD CL 1 EACH LOZENGE MM PRN (08:48)
[2021-10-30 09:33] VITALS: BP 112/56; PULSE 91
[2021-10-30] MEDS ORDERED: CELECOXIB 200 MG CAPSULE PO SCH (10:00)
[2021-10-30] MEDS ORDERED: ENOXAPARIN NA (PORCINE) 40 MG/0.4 ML DISP.SYRIN SQ SCH ×2 (10:00→12:30)
[2021-10-30] MEDS ORDERED: CHOLECALCIFEROL (VIT D3) 1,000 UNIT (25 MCG) TABLET PO SCH (10:00)
[2021-10-30] MEDS: oxyCODONE HCL 5 MG TABLET PO PRN (10:16)
[2021-10-30] MEDS: LACTATED RINGERS SOLUTION 1,000 ML IV SCH (12:24)
== END 2021-10-30 12:50 | disposition home or self-care (01) ==
LOC: FASUSAT 08:54 → FM/S 16:46 → FASUSAT 10-30 12:50
PROVIDERS: ATTEND Orthopaedic Surgery Sports Medicine
PROC: 0PSF04Z Reposition Right Humeral Shaft with Internal Fixation Device, Open Approach (ICD-10-PCS; principal; 2021-10-29 13:01)
DX: S42.301A Unspecified fracture of shaft of humerus, right arm, initial encounter for closed fracture (principal); W19.XXXA Unspecified fall, initial encounter; Y93.9 Activity, unspecified; Y92.9 Unspecified place or not applicable
CPT/HCPCS: 24515; C1713; 94760

== ENCOUNTER 2022-09-17 21:00 | Emergency (ER) | payer BC, OTHER ==
[2022-09-17 21:19] VITALS: BMI 32.2
[2022-09-17] MEDS ORDERED: ONDANSETRON 4 MG/2 ML VIAL IVPUSH ONE (21:41)
[2022-09-17] MEDS ORDERED: SODIUM CHLORIDE 0.9% 500 ML INFUS.BAG IV ONE (21:41)
[2022-09-17] MEDS ORDERED: ONDANSETRON 4 MG/2 ML VIAL ONE (21:55)
[2022-09-17 22:39] LABS: BASO % 0.3 % (0-2.0); EOS % 0.2 % (0-4.5); HEMATOCRIT 47.3 % (32.4-45.2); HEMOGLOBIN 15.8 GM/dL (10.7-15.3); LYMPH % 11.4 % (8-40); MCH 29.4 pg (25.7-33.7); MCHC 33.4 g/dl (32.0-36.0); MEAN CELL VOLUME 88.2 fl (80-96); MEAN PLT VOLUME 8.1 fl (7.5-11.1); MONO % 2.3 % (3.8-10.2); NEUT % 85.8 % (42.8-82.8); PLATELET COUNT 308 10^3/uL (134-434); RBC 5.36 M/mm3 (3.60-5.2); RDW 14.1 % (11.6-15.6); WHITE BLOOD COUNT 14.3 K/mm3 (4.0-10.0)
[2022-09-17 23:02] LABS: CALCIUM 9.8 mg/dL (8.5-10.1)
[2022-09-17 23:03] LABS: ALBUMIN 4.3 g/dl (3.4-5.0); BLOOD UREA NITROGEN 13.4 mg/dL (7-18)
[2022-09-17 23:07] LABS: BILIRUBIN,TOTAL 0.5 mg/dL (0.2-1); TOT PROT 8.4 g/dl (6.4-8.2)
[2022-09-18] MEDS ORDERED: ACETAMINOPHEN 1000 MG/100 ML BAG IVPB ONE (01:29)
[2022-09-18] MEDS ORDERED: ACETAMINOPHEN INJECTION 100 ML IVPB ONE (01:35)
[2022-09-18 02:12] LABS: BASO % 0.5 % (0-2.0); EOS % 0.5 % (0-4.5); HEMATOCRIT 42.2 % (32.4-45.2); HEMOGLOBIN 14.2 GM/dL (10.7-15.3); LYMPH % 15.8 % (8-40); MCH 29.7 pg (25.7-33.7); MCHC 33.8 g/dl (32.0-36.0); MEAN CELL VOLUME 87.9 fl (80-96); MEAN PLT VOLUME 8.3 fl (7.5-11.1); MONO % 2.2 % (3.8-10.2); PLATELET COUNT 280 10^3/uL (134-434); RDW 14.3 % (11.6-15.6)
[2022-09-18] MEDS ORDERED: ONDANSETRON 4 MG/2 ML VIAL IVPUSH ONE (03:10)
[2022-09-18] MEDS ORDERED: ONDANSETRON 4 MG/2 ML VIAL ONE (03:13)
[2022-09-18 03:16] LABS: EPI CELLS 17 /uL (0-25.1); HYALINE CASTS 0 /uL (0-3.1); PH,URINE 8.5 (5.0-8.0); URINE APPEARANCE CLEAR; URINE BACTERIA 354 /uL (0-1359); URINE BILIRUBIN NEGATIVE (NEGATIVE); URINE COLOR YELLOW; URINE GLUCOSE (UA) NEGATIVE (NEGATIVE); URINE KETONE NEGATIVE (NEGATIVE); URINE LEUK ESTERASE NEGATIVE (NEGATIVE); URINE NITRITE NEGATIVE (NEGATIVE); URINE PROTEIN 2+ (NEGATIVE); URINE RBC 14 /uL (0-23.9); URINE UROBILINOGEN 0.2 mg/dL (0.2-1.0); URINE WBC 15 /uL (0-25.8)
[2022-09-18 05:40] VITALS: RESP 16
[2022-09-18] MEDS ORDERED: diphenhydrAMINE HCL 25 MG CAPSULE (FP) PO ONE ×2 (07:41→07:59)
[2022-09-18] MEDS ORDERED: FAMOTIDINE 20 MG/50 ML IVPB 20 MG/50 ML MG IVPB ONE ×2 (07:41→07:59)
[2022-09-18] MEDS ORDERED: METOCLOPRAMIDE HCL INJECTION 10 MG/2 ML VIAL IVPUSH ONE (07:41)
[2022-09-18] MEDS ORDERED: METOCLOPRAMIDE HCL INJECTION 10 MG/2 ML VIAL ONE (07:59)
[2022-09-18 12:22] VITALS: BP 118/76; PULSE 90; TEMP 98.2
== END 2022-09-18 12:24 | disposition home or self-care (01) ==
LOC: JER 21:00
PROC: 3E033GC Introduction of Other Therapeutic Substance into Peripheral Vein, Percutaneous Approach (ICD-10-PCS; principal; 2022-09-17)
DX: R10.84 Generalized abdominal pain (principal); R11.2 Nausea with vomiting, unspecified
CPT/HCPCS: 36415; 71045-TC-FY; 74177-TC; 80053; 81003; 83690; 84484; 85025; 87086; 93005; 93010; 99285-25; Q9967

== ENCOUNTER 2023-02-17 09:22 | Emergency (ER) | payer OTHER, BC ==
[2023-02-17 09:33] VITALS: BP 127/77; PULSE 108; RESP 17; TEMP 99; BMI 30.8
[2023-02-17] MEDS ORDERED: LIDOCAINE 5% TOPICAL PATCH TP ONE (10:22)
[2023-02-17] MEDS ORDERED: ACETAMINOPHEN 325 MG TABLET (FP) PO ONE (10:22)
[2023-02-17] MEDS ORDERED: ONDANSETRON 4 MG/2 ML VIAL IVPUSH ONE (10:48)
[2023-02-17] MEDS ORDERED: LIDOCAINE 5% TOPICAL PATCH ONE (10:51)
[2023-02-17] MEDS ORDERED: ACETAMINOPHEN 325 MG TABLET (FP) ONE (10:51)
[2023-02-17] MEDS ORDERED: ONDANSETRON *ODT* 4 MG TABLET SL ONE (10:55)
[2023-02-17] MEDS ORDERED: ONDANSETRON *ODT* 4 MG TABLET ONE (10:57)
[2023-02-17 11:42] LABS: POTASSIUM 4.4 mmol/L (3.5-5.1)
[2023-02-17 11:44] LABS: CALCIUM 9.1 mg/dL (8.5-10.1)
[2023-02-17 11:45] LABS: ALBUMIN 3.9 g/dl (3.4-5.0); BASO % 0.7 % (0-2.0); BLOOD UREA NITROGEN 7.1 mg/dL (7-18); EOS % 1.6 % (0-4.5); HEMATOCRIT 44.5 % (32.4-45.2); HEMOGLOBIN 15.3 GM/dL (10.7-15.3); LYMPH % 31.5 % (8-40); MCH 30.3 pg (25.7-33.7); MCHC 34.5 g/dl (32.0-36.0); MEAN CELL VOLUME 87.9 fl (80-96); MEAN PLT VOLUME 8.5 fl (7.5-11.1); MONO % 4.8 % (3.8-10.2); NEUT % 61.4 % (42.8-82.8); PLATELET COUNT 270 10^3/uL (134-434); RBC 5.06 M/mm3 (3.60-5.2); RDW 13.5 % (11.6-15.6); WHITE BLOOD COUNT 8.3 K/mm3 (4.0-10.0)
[2023-02-17 11:48] LABS: CREATININE 0.8 mg/dL (0.55-1.3)
[2023-02-17 11:49] LABS: BILIRUBIN,TOTAL 0.5 mg/dL (0.2-1); TOT PROT 7.2 g/dl (6.4-8.2)
[2023-02-17 12:35] LABS: URINE APPEARANCE CLEAR; URINE BILIRUBIN NEGATIVE (NEGATIVE); URINE COLOR YELLOW; URINE GLUCOSE (UA) NEGATIVE (NEGATIVE); URINE KETONE NEGATIVE (NEGATIVE); URINE LEUK ESTERASE NEGATIVE (NEGATIVE); URINE NITRITE NEGATIVE (NEGATIVE); URINE PROTEIN NEGATIVE (NEGATIVE); URINE UROBILINOGEN 0.2 mg/dL (0.2-1.0)
[2023-02-17] MEDS ORDERED: LIDOCAINE PATCH REMOVAL MC ONE (22:00)
== END 2023-02-17 14:12 | disposition home or self-care (01) ==
LOC: JER 09:22
DX: M25.551 Pain in right hip (principal); R11.0 Nausea; M54.50 Low back pain, unspecified
CPT/HCPCS: 36415; 72100-TC-FY; 73502-TC-RT-FY; 80053; 81003; 82962; 84484; 85025; 87086; 93005; 93010; 99285-25; Q0162

== ENCOUNTER 2023-08-24 19:26 | Emergency (ER) | payer OTHER, BC ==
[2023-08-24 19:32] VITALS: BP 155/86; PULSE 96; RESP 18; TEMP 98.2; BMI 31.2
[2023-08-24 21:04] LABS: EOS % 1.5 % (0-4.5); HEMATOCRIT 43.8 % (32.4-45.2); HEMOGLOBIN 14.7 GM/dL (10.7-15.3); LYMPH % 33.7 % (8-40); MCHC 33.6 g/dl (32.0-36.0); MEAN CELL VOLUME 89.4 fl (80-96); MEAN PLT VOLUME 8.1 fl (7.5-11.1); MONO % 4.5 % (3.8-10.2); NEUT % 59.3 % (42.8-82.8); PLATELET COUNT 276 10^3/uL (134-434)
[2023-08-24 21:31] LABS: POTASSIUM 4.2 mmol/L (3.5-5.1)
[2023-08-24 21:33] LABS: CALCIUM 8.8 mg/dL (8.5-10.1)
[2023-08-24 21:34] LABS: ALBUMIN 3.7 g/dl (3.4-5.0); BLOOD UREA NITROGEN 13.7 mg/dL (7-18)
[2023-08-24 21:37] LABS: CREATININE 0.8 mg/dL (0.55-1.3)
[2023-08-24 21:38] LABS: BILIRUBIN,TOTAL 0.2 mg/dL (0.2-1); TOT PROT 7.1 g/dl (6.4-8.2)
[2023-08-25] MEDS ORDERED: AMOX TR/POT CLAV 875MG/125MG TABLETS (FP) ONE (00:09)
[2023-08-25] MEDS: AMOX TR/POT CLAV 875MG/125MG TABLETS (FP) PO ONE (00:24)
== END 2023-08-25 00:20 | disposition home or self-care (01) ==
LOC: JERFT 19:26
DX: R68.84 Jaw pain (principal); M27.2 Inflammatory conditions of jaws; H92.01 Otalgia, right ear; K11.20 Sialoadenitis, unspecified; T78.1XXA Other adverse food reactions, not elsewhere classified, initial encounter
CPT/HCPCS: 36415; 70491-TC; 80053; 85025; 99285-25; Q9967

== ENCOUNTER 2023-09-11 04:44 | Emergency (ER) | payer OTHER, BC ==
[2023-09-11 04:53] VITALS: BP 145/82; PULSE 92; RESP 18; TEMP 97; BMI 31.2
[2023-09-11] MEDS ORDERED: ACETAMINOPHEN 325 MG TABLET (FP) ONE (05:38)
[2023-09-11] MEDS ORDERED: LIDOCAINE 4% PATCH TP ONE (05:39)
[2023-09-11] MEDS: LIDOCAINE 5% TOPICAL PATCH TP ONE (05:48)
[2023-09-11] MEDS: ACETAMINOPHEN 500 MG TABLET (FP) PO ONE (05:48)
[2023-09-11 05:55] LABS: BASO % 1.1 % (0-2.0); EOS % 1.7 % (0-4.5); HEMATOCRIT 44.7 % (32.4-45.2); HEMOGLOBIN 14.5 GM/dL (10.7-15.3); MCH 29.4 pg (25.7-33.7); MCHC 32.5 g/dl (32.0-36.0); MEAN CELL VOLUME 90.4 fl (80-96); MEAN PLT VOLUME 7.8 fl (7.5-11.1); MONO % 5.4 % (3.8-10.2); NEUT % 48.8 % (42.8-82.8); PLATELET COUNT 299 10^3/uL (134-434); RBC 4.94 M/mm3 (3.60-5.2); RDW 14.2 % (11.6-15.6); WHITE BLOOD COUNT 9.9 K/mm3 (4.0-10.0)
[2023-09-11 06:14] LABS: CALCIUM 9.1 mg/dL (8.5-10.1)
[2023-09-11 06:15] LABS: ALBUMIN 3.6 g/dl (3.4-5.0); BLOOD UREA NITROGEN 13.1 mg/dL (7-18)
[2023-09-11 06:18] LABS: CREATININE 0.7 mg/dL (0.55-1.3)
[2023-09-11 06:19] LABS: BILIRUBIN,TOTAL 0.3 mg/dL (0.2-1)
[2023-09-11] MEDS ORDERED: KETOROLAC TROMETHAMINE 30 MG/1 ML VIAL ONE (06:47)
[2023-09-11] MEDS ORDERED: KETOROLAC TROMETHAMINE 30 MG/1 ML VIAL IM ONE (06:47)
[2023-09-11] MEDS ORDERED: LIDOCAINE PATCH REMOVAL MC ONE (17:00)
== END 2023-09-11 07:13 | disposition home or self-care (01) ==
LOC: JER 04:44
DX: M75.52 Bursitis of left shoulder (principal); M25.512 Pain in left shoulder
CPT/HCPCS: 36415; 73030-TC-LT-FY; 80053; 84484; 85025; 93005; 93010; 99285-25

== ENCOUNTER 2024-06-01 12:42 | Emergency (ER) | payer OTHER, BC ==
[2024-06-01 12:59] VITALS: BP 128/75; PULSE 91; RESP 18; TEMP 98.6; BMI 31.2
[2024-06-01] MEDS ORDERED: MAG HYDROX/AL HYDROX/SIMETH 30 ML UNIT-DOSE CUP ONE (14:26)
[2024-06-01] MEDS ORDERED: FAMOTIDINE 20 MG/50 ML IVPB 20 MG/50 ML MG IVPB ONE (14:27)
[2024-06-01] MEDS: MAG HYDROX/AL HYDROX/SIMETH 30 ML UNIT-DOSE CUP PO ONE (14:41)
[2024-06-01] MEDS: FAMOTIDINE 20 MG/50 ML IVPB 20 MG/50 ML MG IVPB ONE (14:41)
[2024-06-01 14:47] LABS: BASO % 1.1 % (0-2.0); EOS % 1.1 % (0-4.5); HEMATOCRIT 44.5 % (32.4-45.2); HEMOGLOBIN 14.8 GM/dL (10.7-15.3); LYMPH % 35.7 % (8-40); MCH 29.5 pg (25.7-33.7); MCHC 33.2 g/dl (32.0-36.0); MEAN CELL VOLUME 89.1 fl (80-96); MEAN PLT VOLUME 7.7 fl (7.5-11.1); MONO % 4.2 % (3.8-10.2); NEUT % 57.9 % (42.8-82.8); PLATELET COUNT 282 10^3/uL (134-434); RDW 13.8 % (11.6-15.6); WHITE BLOOD COUNT 9.9 K/mm3 (4.0-10.0)
[2024-06-01 14:59] LABS: URINE APPEARANCE CLEAR; URINE BILIRUBIN NEGATIVE (NEGATIVE); URINE COLOR YELLOW; URINE GLUCOSE (UA) NEGATIVE (NEGATIVE); URINE KETONE TRACE (NEGATIVE); URINE LEUK ESTERASE NEGATIVE (NEGATIVE); URINE NITRITE NEGATIVE (NEGATIVE); URINE PROTEIN NEGATIVE (NEGATIVE); URINE UROBILINOGEN 0.2 mg/dL (0.2-1.0)
[2024-06-01 15:16] LABS: POTASSIUM 4.2 mmol/L (3.5-5.1)
[2024-06-01 15:18] LABS: ALBUMIN 3.8 g/dl (3.4-5.0); BLOOD UREA NITROGEN 11.1 mg/dL (7-18)
[2024-06-01 15:19] LABS: CALCIUM 9.5 mg/dL (8.5-10.1); MAGNESIUM 2.2 mg/dL (1.8-2.4)
[2024-06-01 15:21] LABS: CREATININE 0.6 mg/dL (0.55-1.3)
[2024-06-01 15:25] LABS: ACTIVATED PTT 35.6 SECONDS (25.2-36.5); BILIRUBIN,TOTAL 0.4 mg/dL (0.2-1); INR 0.91 (0.83-1.09); PROTHROMBIN TIME (PATIENT) 10.3 SEC (9.7-13.0)
[2024-06-01 16:31] LABS: HIV INTERPRETATION NEGATIVE (NEGATIVE)
== END 2024-06-01 21:18 | disposition home or self-care (01) ==
LOC: JER 12:42
PROC: 3E033GC Introduction of Other Therapeutic Substance into Peripheral Vein, Percutaneous Approach (ICD-10-PCS; principal; 2024-06-01)
DX: R10.13 Epigastric pain (principal); R11.0 Nausea
CPT/HCPCS: 36415; 71045-TC-FY; 74177-TC; 76705-TC; 80053; 81003; 83690; 83735; 84484; 85025; 85610; 85730; 86803; 86850; 86900; 86901; 87086; 87389; 93005; 93010; 99285-25; Q9967